=== PATIENT | female | born 1950 | race Caucasian/White ===

== ENCOUNTER 2017-04-18 13:31 | Outpatient (CLI) | payer BC, MEDICARE ==
[~2017-04-18] VITALS: Ht 165.1 cm; Wt 61.4 kg
[~2017-04-18 13:31] MED LIST: VENTOLIN HFA18 GM INH; XANAX0.5 MG PO; ZOLOFT25 MG PO
[2017-04-18 13:55] VITALS: BP 114/76; Ht 165.1 cm; Wt 61.4 kg
== END 2017-04-18 14:09 | disposition home or self-care (01) ==
LOC: D.OPS 13:31
DX: M81.0 Age-related osteoporosis without current pathological fracture (principal)

== ENCOUNTER 2018-07-30 12:25 | Outpatient (CLI) | payer BC, MEDICARE ==
[~2018-07-30] VITALS: Ht 165.1 cm; Wt 61.4 kg
[2018-07-30 13:37] VITALS: BP 130/74; Ht 165.1 cm; Wt 61.4 kg
== END 2018-07-30 13:45 | disposition home or self-care (01) ==
LOC: D.OPS 12:25
DX: M81.0 Age-related osteoporosis without current pathological fracture (principal); Z01.812 Encounter for preprocedural laboratory examination

== ENCOUNTER 2019-10-21 13:58 | Outpatient (CLI) | payer BC, MEDICARE ==
[~2019-10-21] VITALS: Ht 167.6 cm; Wt 61.4 kg
[2019-10-21 14:14] VITALS: BP 142/75; Ht 167.6 cm; Wt 61.4 kg
--- NOTE | 2019-10-21 14:26 | NUR ---
PT LEFT AMBULATING FROM UNIT AT 1428
== END 2019-10-21 14:25 | disposition home or self-care (01) ==
LOC: D.OPS 13:58
PROVIDERS: ATTEND Emergency Medicine
DX: M81.0 Age-related osteoporosis without current pathological fracture (principal)